=== PATIENT | male | born 1955 | race Caucasian/White ===

== ENCOUNTER → 2016-08-17 | Day surgery (SDC) | payer OTHER ==
[~2016-08-17] MED LIST: ALLEGRA; ALLERGY10 M2 PO; ANUSOL-HC21 GM; ASPIRIN81 M1 PO; AVINZA; BACLOFEN10 MG PO; BUPROPION XL300 MG PO; CAL/MAG/ZINC; CALCIUM-MAGNESI1 TA4 PO; CITALOPRAM HBR40 MG PO; CLOMID50 MG PO; COZAAR100 MG PO; CRESTOR PO; FLONASE ALLERG9.9 ML; LISINOPRIL; MIRALAX255 GM; MIRALAX255 GM PO; MOBIC15 MG PO; MULTI-VITAMIN1 TAB PO; NASONEX17 GM; NEURONTIN100 MG PO; NORVASC PO; NOVAREL INJ; OMEGA 3 FISH OIL; PERCOCET10 PO; PRILOSEC PO; PROMETRIUM PO; PROTONIX; PROZAC; SAW PALMETTO CA1 CAP PO; SENNA LAXATIVE; SINGULAIR PO; TOPAMAX25 MG PO; TYLOX 5-500 CA1 EACH PO; VIT B-12 PO; VITAMIN C; VITAMIN D1000 UNI1 PO; WELLBUTRIN XL PO; [UNRECOGNIZED DRUG - OTHER]; [UNRECOGNIZED DRUG - OTHER] PO
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
== END | disposition home or self-care (01) ==
LOC: CCSC 09:33
DX: M51.16 Intervertebral disc disorders with radiculopathy, lumbar region (principal); M50.123 Cervical disc disorder at C6-C7 level with radiculopathy; Z88.6 Allergy status to analgesic agent; Z79.899 Other long term (current) drug therapy; Z79.51 Long term (current) use of inhaled steroids
CPT/HCPCS: J1040; J2250